=== PATIENT | female | born 1980 | race Caucasian/White ===

== ENCOUNTER 2016-09-26 17:05 | Emergency (ER) | payer BC, OTHER ==
[2016-09-26 17:13] VITALS: BP 170/118; PULSE 138; TEMP 98.3; BMI 40.7
== END 2016-09-26 18:04 | disposition left against medical advice (07) ==
LOC: JER 17:05
DX: Z53.21 Procedure and treatment not carried out due to patient leaving prior to being seen by health care provider (principal)
CPT/HCPCS: 99281-25